=== PATIENT | male | born 1960 ===

== ENCOUNTER 2018-09-22 11:46 | Emergency (ER) | payer BC ==
[2018-09-22 11:58] VITALS: BP 138/80; PULSE 63
--- NOTE | 2018-09-22 12:03 | EDM.PDOC ---
ED HPI GENERAL MEDICAL PROBLEM - General Chief Complaint: General Stated Complaint: DIZZINESS, FEELS LIKE THROAT IS SWELLING Time Seen by Provider: 09/22/18 11:48 Source of Information: Reports: Patient History Limitations: Reports: No Limitations - History of Present Illness INITIAL COMMENTS - FREE TEXT/NARRATIVE: History of present illness: []Patient has had apparently one month of intermittent dizziness is described as spinning, associated with nausea. He also complains of swelling in his throat difficulty swallowing food. No chest pain, shortness of breath, vomiting , fevers, chills, headache, ringing in his ears, numbness or tingling, sore throat. He had a root canal one week ago and thought that would help his symptoms, however, it has not changed. He has been on antibiotics for the last week and is concerned because the side effects can cause throat swelling. Review of systems: As per history of present illness and below otherwise all systems reviewed and negative. Past medical history: As per history of present illness and as reviewed below otherwise noncontributory. Surgical history: As per history of present illness and as reviewed below otherwise noncontributory. Social history: No reported history of drug or alcohol abuse. Family history: As per history of present illness and as reviewed below otherwise noncontributory. Physical exam: General: Well developed, well nourished in NAD HEENT: Atraumatic, normocephalic, pupils reactive, negative for conjunctival pallor or scleral icterus, mucous membranes moist, throat clear, neck supple, nontender, no palpable neck masses or adenopathy, trachea midline. TMs clear, oropharynx without edema no stridor Lungs: Clear to auscultation, breath sounds equal bilaterally, chest nontender. No wheezing Heart: S1S2, regular, negative for clicks, rubs, or JVD. Abdomen: NABS, Soft, nondistended, nontender. Negative for masses or hepatosplenomegaly. Negative for costovertebral tenderness. Pelvis: Stable nontender. Genitourinary: Deferred. Rectal: Deferred. Extremities: Atraumatic, negative for cords or calf pain. Neurovascular unremarkable. Neuro: Awake, alert, oriented. Cranial nerves II through XII unremarkable. Cerebellum unremarkable. Motor and sensory unremarkable throughout. Exam nonfocal. Skin:warm and dry Diagnostics: Soft tissue neck CBC, chemistry-nl Therapeutics: Meclizine, Zofran ED Course: stable Impression: Benign positional vertigo Prescriptions: declined Plan: Take meclizine for dizziness as directed, appointment with Dr. Robbins tomorrow morning and return to ER if symptoms worsen or change Definitive disposition and diagnosis as appropriate pending reevaluation and review of above. Back Pain Score (Numeric/FACES): 4 - Related Data Allergies Allergy/AdvReac Type Severity Reaction Status Date / Time formoterol fumarate Allergy Blurred Verified 09/22/18 11:58 [From Dulera] Vision mometasone furoate Allergy Blurred Verified 09/22/18 11:58 [From Dulera] Vision Home Meds: Home Meds Albuterol Sulfate [Albuterol Sulfate HFA] 8.5 gm IH Q4H PRN 07/21/13 [History] Budesonide/Formoterol [Symbicort 160-4.5 MCG] 1 inhalation PO BID 07/21/13 [ History] Fluticasone Furoate [Veramyst] 1 spray GUSTAVO DAILY 07/21/13 [History] Past Medical History - Past Health History Medical/Surgical History: Denies Medical/Surgical History Respiratory History: Reports: Bronchitis, Recurrent Musculoskeletal History: Reports: Back Pain, Chronic - Past Surgical History HEENT Surgical History: Reports: Oral Surgery Social & Family History - Family History Family Medical History: Noncontributory - Tobacco Use Smoking Status *Q: Never Smoker Second Hand Smoke Exposure: No - Recreational Drug Use Recreational Drug Use: No ED ROS GENERAL - Review of Systems Review Of Systems: See Below ED EXAM, GENERAL - Physical Exam Exam: See Below (See history of present illness) Course - Vital Signs Last Recorded V/S: Last Vital Signs Temp 97.7 F 09/22/18 11:56 Pulse 63 09/22/18 11:56 Resp 18 09/22/18 11:56 BP 138/80 09/22/18 11:56 Pulse Ox 98 09/22/18 11:56 - Orders/Labs/Meds Labs: Laboratory Tests 09/22/18 09/22/18 Range/Units 12:44 12:44 WBC 7.74 (4.0-11.0) K/uL RBC 4.88 (4.50-5.90) M/uL Hgb 15.5 (13.0-17.0) g/dL Hct 45.9 (38.0-50.0) % MCV 94.1 (80.0-98.0) fL MCH 31.8 (27.0-32.0) pg MCHC 33.8 (31.0-37.0) g/dL RDW Std Deviation 44.2 (28.0-62.0) fl RDW Coeff of Raheem 13 (11.0-15.0) % Plt Count 231 (150-400) K/uL MPV 9.30 (7.40-12.00) fL Neut % (Auto) 57.9 (48.0-80.0) % Lymph % (Auto) 32.9 (16.0-40.0) % Greer % (Auto) 6.8 (0.0-15.0) % Eos % (Auto) 1.9 (0.0-7.0) % Baso % (Auto) 0.5 (0.0-1.5) % Neut # (Auto) 4.5 (1.4-5.7) K/uL Lymph # (Auto) 2.6 H (0.6-2.4) K/uL Greer # (Auto) 0.5 (0.0-0.8) K/uL Eos # (Auto) 0.2 (0.0-0.7) K/uL Baso # (Auto) 0.0 (0.0-0.1) K/uL Nucleated RBC % 0.0 /100WBC Nucleated RBCs # 0 K/uL Sodium 142 (136-148) mmol/L Potassium 4.1 (3.5-5.1) mmol/L Chloride 104 (98-107) mmol/L Carbon Dioxide 29.1 (21.0-32.0) mmol/L BUN 11 (7.0-18.0) mg/dL Creatinine 0.8 (0.8-1.3) mg/dL Est Cr Clr Drug Dosing 103.92 mL/min Estimated GFR (MDRD) > 60.0 ml/min Glucose 101 (74-106) mg/dL Calcium 9.5 (8.5-10.1) mg/dL Total Bilirubin 1.0 (0.2-1.0) mg/dL AST 34 (15-37) IU/L ALT 71 H (14-63) IU/L Alkaline Phosphatase 44 L (46-116) U/L Total Protein 8.0 (6.4-8.2) g/dL Albumin 4.5 (3.4-5.0) g/dL Globulin 3.5 (2.6-4.0) g/dL Albumin/Globulin Ratio 1.3 (0.9-1.6) Meds: Medications Discontinued Medications Generic Name Dose Route Start Last Admin Trade Name Freq PRN Reason Stop Dose Admin Meclizine HCl 25 mg 09/22/18 12:09/22/18 12:20 Antivert PO 09/22/18 12:09 25 mg ONETIME ONE Administration Ondansetron HCl 4 mg 09/22/18 12:09/22/18 12:20 Zofran Odt PO 09/22/18 12:09 4 mg ONETIME ONE Administration Departure - Departure Time of Disposition: 13:21 Disposition: Home, Self-Care 01 Condition: Good Clinical Impression: Benign positional vertigo Qualifiers: Laterality: unspecified laterality Qualified Code(s): H81.10 - Benign paroxysmal vertigo, unspecified ear - Discharge Information *PRESCRIPTION DRUG MONITORING PROGRAM REVIEWED*: No *COPY OF PRESCRIPTION DRUG MONITORING REPORT IN PATIENT CAROL: No Referrals: Pasquale Robbins MD [Primary Care Provider] - Forms: ED Department Discharge Additional Instructions: The following information is given to patients seen in the emergency department who are being discharged to home. This information is to outline your options for follow-up care. We provide all patients seen in our emergency department with a follow-up referral. The need for follow-up, as well as the timing and circumstances, are variable depending upon the specifics of your emergency department visit. If you don't have a primary care physician on staff, we will provide you with a referral. We always advise you to contact your personal physician following an emergency department visit to inform them of the circumstance of the visit and for follow-up with them and/or the need for any referrals to a consulting specialist. The emergency department will also refer you to a specialist when appropriate. This referral assures that you have the opportunity for follow-up care with a specialist. All of these measure are taken in an effort to provide you with optimal care, which includes your follow-up. Under all circumstances we always encourage you to contact your private physician who remains a resource for coordinating your care. When calling for follow-up care, please make the office aware that this follow-up is from your recent emergency room visit. If for any reason you are refused follow-up, please contact the [facility] Emergency Department at and asked to speak to the emergency department charge nurse. Take meclizine as directed, follow up with your primary care physician, return to ER if symptoms worsen or change. [facility] [address] [place] [id number]
[2018-09-22] MEDS ORDERED: Meclizine 25 MG Tab PO ONE (12:08)
[2018-09-22] MEDS ORDERED: Ondansetron 4 MG Tab.DIS PO ONE (12:08)
[2018-09-22 13:12] LABS: BLOOD UREA NITROGEN,BUN 11 mg/dL (7.0-18.0); CARBON DIOXIDE,CO2 29.1 mmol/L (21.0-32.0); CHLORIDE,CL 104 mmol/L (98-107); GLUCOSE RANDOM 101 mg/dL (74-106); POTASSIUM,K 4.1 mmol/L (3.5-5.1); SODIUM,NA 142 mmol/L (136-148)
--- NOTE | 2018-09-22 13:14 | CR ---
INDICATION: Throat swelling TECHNIQUE: AP and lateral soft tissue neck FINDINGS: The epiglottis and valleculae appear normal. The adenoid tissue and prevertebral soft tissues are of normal thickness. There is no evidence of gas or radiopaque foreign body within the soft tissues. The hyoid bone, cricoid, thyroid cartilages appear normal. IMPRESSION: Negative soft tissue neck. Dictated by Kurtis Powers MD @ Sep 22 2018 1:08PM Signed by Dr. Kurtis Powers @ Sep 22 2018 1:11PM
== END 2018-09-22 13:30 | disposition home or self-care (01) ==
LOC: MW.ED 11:46
DX: H81.10 Benign paroxysmal vertigo, unspecified ear (principal); Z88.8 Allergy status to other drugs, medicaments and biological substances
CPT/HCPCS: 36415; 70360; 80053; 85025; 99284; A9270; 99283

== ENCOUNTER 2019-03-01 06:38 | Day surgery (SDC) | payer BC ==
[~2019-03-01 06:38] MED LIST: Lactated Ringers 1,000 ML IV SCH; Sodium Chloride 0.9% 10 ML SDV IV PRN; Sodium Chloride 0.9% 10 ML Syringe FLUSH PRN; Sodium Chloride 0.9% 2.5 ML Syringe FLUSH PRN; ceFAZolin 2 GM in Premix Bag 1 BAG IV ONE
--- NOTE | 2019-03-01 07:18 | PCM.PREANE ---
Preanesthetic Assessment - Anesthesia/Transfusion/Family Hx Anesthesia History: Prior Anesthesia Without Reaction Other Type of Anesthesia Reaction Comment: Awoke during Thumb surgery Family History of Anesthesia Reaction: No Transfusion History: No Prior Transfusion(s) Intubation History: Unknown - Review of Systems General: No Symptoms Pulmonary: No Symptoms Cardiovascular: No Symptoms Gastrointestinal: No Symptoms Neurological: No Symptoms Other: Reports: None - Physical Assessment Height: 5 ft 10 in Weight: 81.647 kg ASA Class: 2 Mental Status: Alert & Oriented x3 Airway Class: Mallampati = 3 Dentition: Reports: Normal Dentition, Implants (x1 upper left (front)) Thyro-Mental Finger Breadths: 3 Mouth Opening Finger Breadths: 2 (very small mouth) ROM/Head Extension: Full Lungs: Clear to Auscultation, Normal Respiratory Effort Cardiovascular: Regular Rate, Regular Rhythm - Allergies Allergies/Adverse Reactions: Allergies Allergy/AdvReac Type Severity Reaction Status Date / Time formoterol fumarate Allergy Blurred Verified 02/25/19 09:28 [From Dulera] Vision mometasone furoate Allergy Blurred Verified 02/25/19 09:28 [From Dulera] Vision - Blood Blood Available: No - Anesthesia Plan Pre-Op Medication Ordered: None - Acknowledgements Anesthesia Type Planned: MAC Pt an Appropriate Candidate for the Planned Anesthesia: Yes Alternatives and Risks of Anesthesia Discussed w Pt/Guardian: Yes Pt/Guardian Understands and Agrees with Anesthesia Plan: Yes PreAnesthesia Questionnaire - Past Health History Medical/Surgical History: Denies Medical/Surgical History HEENT History: Reports: Allergic Rhinitis Respiratory History: Reports: Asthma (mild,moderate), Bronchitis, Recurrent Other Respiratory History: 'Asthmatic bronchitis", has not used a rescue inhaler for 8 years Gastrointestinal History: Reports: Colon Polyp, Diverticulosis Genitourinary History: Reports: Renal Calculus Other Genitourinary History: passed a kidney stone many years ago Musculoskeletal History: Reports: Back Pain, Chronic Dermatologic History: Reports: Other (See Below) Other Dermatologic History: multiple lipomas - Past Surgical History Head Surgeries/Procedures: Reports: None HEENT Surgical History: Reports: Oral Surgery Other HEENT Surgeries/Procedures: wisdom teeth removed, one dental implant GI Surgical History: Reports: Colonoscopy (5byears ago) Musculoskeletal Surgical History: Reports: ORIF Other Musculoskeletal Surgeries/Procedures:: ORIF right thumb- pins removed - SUBSTANCE USE Smoking Status *Q: Former Smoker Tobacco Use Within Last Twelve Months: No Recreational Drug Use History: No - HOME MEDS Home Medications: Home Meds Albuterol Sulfate [Albuterol Sulfate HFA] 8.5 gm IH Q4H PRN 07/21/13 [History] Budesonide/Formoterol [Symbicort 160-4.5 MCG] 1 inhalation PO BID 07/21/13 [ History] Fluticasone Furoate [Veramyst] 1 spray GUSTAVO DAILY 07/21/13 [History] - CURRENT (IN HOUSE) MEDS Current Meds: Current Medications Lactated Ringer's (Ringers, Lactated) 1,000 mls @ 125 mls/hr IV ASDIRECTED SALVADOR Sodium Chloride (Saline Flush) 10 ml FLUSH ASDIRECTED PRN PRN Reason: Keep Vein Open Sodium Chloride (Saline Flush) 2.5 ml FLUSH ASDIRECTED PRN PRN Reason: Keep Vein Open Sodium Chloride (Normal Saline) 10 ml IV ASDIRECTED PRN PRN Reason: IV Use Discontinued Medications Cefazolin Sodium/Dextrose 2 gm (/ Premix) 50 mls @ 100 mls/hr IV ONETIME ONE Stop: 02/28/19 13:49
[2019-03-01] MEDS ORDERED: Midazolam 1 MG/ML 2 ML SDV ONE (07:19)
[2019-03-01] MEDS ORDERED: fentaNYL 100 MCG/2 ML SDV ONE (07:19)
[2019-03-01] MEDS ORDERED: Propofol 200 MG/20 ML SDV ONE (07:19)
[2019-03-01] MEDS ORDERED: Octyl 2-Cyanoacrylate 1 Tube ONE (07:21)
[2019-03-01] MEDS ORDERED: Lidocaine 1% 20 ML MDV ONE (07:21)
[2019-03-01] MEDS ORDERED: Bupivacaine 0.5% 10 ML SDV ONE (07:21)
[2019-03-01] MEDS ORDERED: ePHEDrine 50 MG/ML SDV ONE (07:25)
[2019-03-01] MEDS ORDERED: Sodium Chloride 0.9% 20 ML ONE (07:25)
[2019-03-01] MEDS ORDERED: fentaNYL 100 MCG/2 ML SDV IVPUSH PRN (07:45)
[2019-03-01] MEDS ORDERED: Rocuronium 100 MG/10 ML Syringe ONE (09:28)
[2019-03-01] MEDS ORDERED: ceFAZolin/Dextrose,Iso-Osmotic 2 GM/50 ML Duplex Bag IV ONE (09:55)
--- NOTE | 2019-03-01 10:14 | PCM.POSTAN ---
POST ANESTHESIA ASSESSMENT - MENTAL STATUS Mental Status: Alert, Oriented - VITAL SIGNS Vital Signs: Last Vital Signs Temp 36.4 C 03/01/19 09:40 Pulse 77 03/01/19 10:00 Resp 13 03/01/19 10:00 BP 112/73 03/01/19 10:00 Pulse Ox 97 03/01/19 10:00 - RESPIRATORY Respiratory Status: Respiratory Rate WNL, Airway Patent, O2 Saturation Stable - CARDIOVASCULAR CV Status: Pulse Rate WNL, Blood Pressure Stable - GASTROINTESTINAL GI Status: No Symptoms - PAIN Pain Score: 0 - POST OP HYDRATION Hydration Status: Adequate & Stable - OBSERVATIONS Free Text/Narrative:: No anesthesia problems
--- NOTE | 2019-03-01 10:21 | PCM.OPNOTE ---
- General Post-Op/Procedure Note Date of Surgery/Procedure: 03/01/19 Operative Procedure(s): Excision right arm lipomas x 3, excision abdominal wall lipomas x 3 Findings: NO MARGINS ON ANY MASSES. abdominal wall mass 1: 4.5 x 3 x 1.2 cm abdominal wall mass 2: 2.5 x 1.8 x 1 cm abdominal wall mass 3: 2.5 x 2.5 x 0.5 cm right arm mass 1: 2.4 x 2 x 0.5 cm right arm mass 2A: 2.7 x 1.6 x 0.8 cm right arm mass 2B: 1.8 x 1.4 x 0.6 cm right arm mass 3: 1 x 1 x 1 cm Pre Op Diagnosis: Lipomas Post-Op Diagnosis: same Anesthesia Technique: General ET Tube Primary Surgeon: Taylor Fuller Fluid Replacement, Intraop: 1,400 EBL in mLs: 10 Condition: Good Free Text/Narrative:: Intake & Output 02/28/19 03/01/19 03/01/19 22:59 06:59 14:59 Intake Total 1150 Balance 1150
[2019-03-01] MEDS ORDERED: Acetaminophen/HYDROcodone 325-5 MG Tab PO ONE (10:30)
[2019-03-01] MEDS ORDERED: Acetaminophen/HYDROcodone 325-5 MG Tab ONE (10:39)
[2019-03-01 10:53] VITALS: BP 118/57; PULSE 64
--- NOTE | 2019-03-01 11:56 | PCM48HPAN ---
Post Anesthesia Note - EVALUATION WITHIN 48HRS OF ANESTHETIC Vital Signs in Normal Range: Yes Patient Participated in Evaluation: Yes Respiratory Function Stable: Yes Airway Patent: Yes Cardiovascular Function Stable: Yes Hydration Status Stable: Yes Pain Control Satisfactory: Yes Nausea and Vomiting Control Satisfactory: Yes Mental Status Recovered: Yes Vital Signs: Last Vital Signs Temp 36.4 C 03/01/19 10:05 Pulse 64 03/01/19 10:50 Resp 16 03/01/19 10:50 BP 118/57 L 03/01/19 10:50 Pulse Ox 98 03/01/19 10:50 - COMMENTS/OBSERVATIONS Free Text/Narrative:: NO anesthesia problems
--- NOTE | 2019-03-01 17:38 | OR ---
SURGEON: TAYLOR FULLER MD DATE OF PROCEDURE: 03/01/2019 PREOPERATIVE DIAGNOSIS: Multiple lipomas. POSTOPERATIVE DIAGNOSIS: Multiple lipomas. PROCEDURES PERFORMED: 1. Excision of abdominal wall lipoma x3. 2. Excision of right forearm lipoma x3. PRIMARY SURGEON: Taylor Fluler MD. ANESTHESIA: General endotracheal anesthesia. FLUIDS: 1400 mL of crystalloid. ESTIMATED BLOOD LOSS: 10 mL. COMPLICATIONS: None. FINDINGS: Abdominal wall lipoma #1: 4.5 x 3 x 1.2. Abdominal wall lipoma 2: 2.5 x 1.8 x 1 cm. Abdominal wall lipoma 3: 2.5 x 2.5 x 0.5 cm. Right arm lipoma #1: 2.4 x 2 x 0.5 cm. Right arm lipoma 2A: 2.7 x 1.6 x 0.8 cm. Right arm lipoma 2B: 1.8 x 1.4 x 0.6 cm. Right arm lipoma 3: 1 x 1 x 1 cm. INDICATIONS: The patient is a 59-year-old male who presents with multiple lipomas on his right forearm as well as abdominal wall. He has had multiple lipomas removed in the past. The patient and I discussed the procedure to excise these. I explained the expected perioperative course and the risks including bleeding, infection, or damage to surrounding structures. He verbalized understanding and wishes to proceed. PROCEDURE IN DETAIL: The patient was brought into the OR and placed on the OR table in supine position. A time-out was completed verifying the patient's name, age, date of , allergies, and procedure to be performed. General endotracheal anesthesia was induced. The abdominal wall was prepped and draped in usual standard fashion. There were 3 lipomas along the anterior abdominal wall. The patient and I had marked these in the preoperative area. I started with the most lateral lipoma, which was located on the right side. I anesthetized the area with a 1:1 mixture of 1% lidocaine plain and 0.5% Marcaine plain. I then anesthetized the other two lesions with the same mixture as well. A 15 blade was used to make an incision over the top of the lateral abdominal wall mass. Cautery was used to dissect down to the level of subcutaneous fat. I immediately encountered a fatty appearing mass consistent with a lipoma. Using a blunt dissection, I was able to free this easily from the surrounding subcutaneous fat. It was elevated and cautery was used to dissect it free from its surrounding attachments. It was then placed on the back table. It was labeled abdominal wall mass #1. It measured 4.5 x 3 x 1.2 cm in size. Hemostasis was achieved with electrocautery. I then turned my attention to abdominal wall lipoma #2. I used a 15 blade to make an incision over the top of this lesion and dissect to the subcutaneous fat using cautery. I immediately encountered the other lipoma. I dissected it free from the surrounding tissues using blunt dissection. It was placed on the back table. It was labeled as abdominal wall mass #2. It measured 2.5 x 1.8 x 1 cm in size. Hemostasis was achieved electrocautery. I turned my attention to abdominal wall lipoma #3. A 15 blade was used to make an incision over the top of this. Cautery was used to dissect down to level of subcutaneous fat. I immediately encountered a fatty appearing mass. This was consistent with a lipoma. It was bluntly dissected away from the surrounding normal tissue and placed on the back field. It was labeled abdominal wall mass #3. It measured 2.5 x 2.5 x 0.5 cm in size. Hemostasis was achieved with electrocautery. I then closed all three wounds in similar fashion using interrupted 3-0 Vicryl in the subcutaneous fat layer and closing the skin incision using a running 4-0 Monocryl stitch. Steri-Strips and sterile dressings were applied. The back table and cautery were kept sterile and all the dressings were taken down. We then prepped and draped the right extremity. In the preoperative area, I had marked the right forearm masses that the patient wanted removed. These were all anesthetized with the same 1:1 mixture of lidocaine and Marcaine. A 15 blade was used to make incisions over the top of each of these lesions. I started with my most distal mass. Electrocautery was carefully used to dissect out what appeared to be a lipoma. It was placed on the back table and labeled right arm mass #1. It measured 2.4 x 2 x 0.5 cm in size. Electrocautery was used to achieve hemostasis. I then turned my attention to the next lesion. It was dissected out in similar fashion. This lipoma was actually two lipomas located next to each other. The first one that was taken out measured 2.7 x 1.6 x 0.8 cm in size. The lipoma right next to it measured 1.8 x 1.4 x 0.6 cm in size. These were labeled as right arm mass 2A and 2B respectively. Hemostasis was achieved with electrocautery and great care was taken not to injure any structures around the area. The last skin lesion was dissected out in similar fashion. It measured 1 x 1 x 1 cm in size. It was labeled as right arm mass #3. All of the forearm skin lesions were closed with interrupted 3-0 Ethilon sutures. Sterile dressings and an Devin wrap were applied. The patient tolerated the procedure well. He was extubated and taken to PACU in stable condition. All counts were complete and correct at the end of the case. Given that these were lipomas, there were no margins associated with the lesions. RADHA CRAWFORD /[id number]
== END 2019-03-01 11:14 | disposition home or self-care (01) ==
LOC: MW.SDS 06:38
PROVIDERS: ATTEND Surgery
DX: D17.1 Benign lipomatous neoplasm of skin and subcutaneous tissue of trunk (principal); D17.21 Benign lipomatous neoplasm of skin and subcutaneous tissue of right arm; J45.909 Unspecified asthma, uncomplicated; Z87.891 Personal history of nicotine dependence; Z79.51 Long term (current) use of inhaled steroids; Z88.8 Allergy status to other drugs, medicaments and biological substances
CPT/HCPCS: 11401; 11402; 11403; 22902; 22903; A9270; J0330; J0690; J2001; J2250; J2704; J3010; J3490; J7120; 00400; 88304

== ENCOUNTER 2019-03-29 08:46 | Day surgery (SDC) | payer BC ==
[~2019-03-29 08:46] MED LIST changes: -ceFAZolin 2 GM in Premix Bag 1 BAG IV ONE
--- NOTE | 2019-03-29 10:33 | PCM.PREANE ---
Preanesthetic Assessment - Anesthesia/Transfusion/Family Hx Anesthesia History: Prior Anesthesia Without Reaction Other Type of Anesthesia Reaction Comment: daughter has problems with N&V post anesthesia Family History of Anesthesia Reaction: No Transfusion History: No Prior Transfusion(s) Intubation History: Unknown - Review of Systems General: No Symptoms Pulmonary: No Symptoms Cardiovascular: No Symptoms Gastrointestinal: No Symptoms, Other (h/o multiple colon polyps 5 years ago) Neurological: No Symptoms Other: Reports: None - Physical Assessment Vital Signs: Last Vital Signs Temp 36.9 C 03/29/19 10:01 Pulse 80 03/29/19 10:01 Resp 18 03/29/19 10:01 BP 142/80 H 03/29/19 10:01 Pulse Ox 97 03/29/19 10:01 Height: 5 ft 10 in Weight: 80.739 kg ASA Class: 2 Mental Status: Alert & Oriented x3 Airway Class: Mallampati = 2 Dentition: Reports: Normal Dentition, Goodenow(s) (x1 lower right), Implants (x1 upper left (side) ) Thyro-Mental Finger Breadths: 3 Mouth Opening Finger Breadths: 3 ROM/Head Extension: Full Lungs: Clear to Auscultation, Normal Respiratory Effort Cardiovascular: Regular Rate, Regular Rhythm - Allergies Allergies/Adverse Reactions: Allergies Allergy/AdvReac Type Severity Reaction Status Date / Time formoterol fumarate Allergy Blurred Verified 03/23/19 08:09 [From Dulera] Vision mometasone furoate Allergy Blurred Verified 03/23/19 08:09 [From Dulera] Vision - Blood Blood Available: No - Anesthesia Plan Pre-Op Medication Ordered: None - Acknowledgements Anesthesia Type Planned: MAC Pt an Appropriate Candidate for the Planned Anesthesia: Yes Alternatives and Risks of Anesthesia Discussed w Pt/Guardian: Yes Pt/Guardian Understands and Agrees with Anesthesia Plan: Yes PreAnesthesia Questionnaire - Past Health History Medical/Surgical History: Denies Medical/Surgical History HEENT History: Reports: Allergic Rhinitis Cardiovascular History: Reports: None Respiratory History: Reports: Bronchitis, Recurrent Other Respiratory History: 'Asthmatic bronchitis", has not used a rescue inhaler for 5 years, uses symbicort daily Gastrointestinal History: Reports: Colon Polyp (5 years ago), Diverticulosis Genitourinary History: Reports: Renal Calculus Other Genitourinary History: passed a kidney stone many years ago Musculoskeletal History: Reports: Back Pain, Chronic Neurological History: Reports: None Psychiatric History: Reports: None Endocrine/Metabolic History: Reports: None Hematologic History: Reports: None Immunologic History: Reports: None Oncologic (Cancer) History: Reports: None Dermatologic History: Reports: Other (See Below) Other Dermatologic History: excision of multiple lipomas 1 month ago - Past Surgical History Head Surgeries/Procedures: Reports: None HEENT Surgical History: Reports: Oral Surgery Other HEENT Surgeries/Procedures: wisdom teeth removed, one dental implant Cardiovascular Surgical History: Reports: None Respiratory Surgical History: Reports: None GI Surgical History: Reports: Colonoscopy (5 years ago) Endocrine Surgical History: Reports: None Neurological Surgical History: Reports: None Musculoskeletal Surgical History: Reports: ORIF Other Musculoskeletal Surgeries/Procedures:: ORIF right thumb- pins removed Oncologic Surgical History: Reports: None Dermatological Surgical History: Reports: Other (See Below) (exc. of multiple lipoma from abdominal wall and right arm angiolipoma 4 weeks ago) - SUBSTANCE USE Tobacco Use Within Last Twelve Months: Other (See Below) - HOME MEDS Home Medications: Home Meds Budesonide/Formoterol [Symbicort 160-4.5 MCG] 1 inhalation INH DAILY 07/21/13 [ History] Fluticasone Furoate [Veramyst] 1 spray GUSTAVO DAILY 07/21/13 [History] - CURRENT (IN HOUSE) MEDS Current Meds: Current Medications Lactated Ringer's (Ringers, Lactated) 1,000 mls @ 125 mls/hr IV ASDIRECTED SALVADOR Sodium Chloride (Saline Flush) 10 ml FLUSH ASDIRECTED PRN PRN Reason: Keep Vein Open Sodium Chloride (Saline Flush) 2.5 ml FLUSH ASDIRECTED PRN PRN Reason: Keep Vein Open Sodium Chloride (Saline Flush) 10 ml FLUSH ASDIRECTED PRN PRN Reason: Keep Vein Open Sodium Chloride (Saline Flush) 2.5 ml FLUSH ASDIRECTED PRN PRN Reason: Keep Vein Open Sodium Chloride (Normal Saline) 10 ml IV ASDIRECTED PRN PRN Reason: IV Use
[2019-03-29] MEDS ORDERED: Lidocaine 2% 5 ML SDV ONE (10:35)
[2019-03-29] MEDS ORDERED: Propofol 200 MG/20 ML SDV ONE (10:36)
[2019-03-29] MEDS ORDERED: fentaNYL 100 MCG/2 ML SDV ONE (10:36)
[2019-03-29] MEDS ORDERED: Glycopyrrolate 0.2 MG/ML SDV ONE (11:47)
--- NOTE | 2019-03-29 12:04 | PCM.OPNOTE ---
- General Post-Op/Procedure Note Date of Surgery/Procedure: 03/29/19 Operative Procedure(s): Screening colonoscopy Findings: diverticulosis Pre Op Diagnosis: screening colonoscopy Post-Op Diagnosis: diverticulosis Anesthesia Technique: MAC Primary Surgeon: Taylor Fuller Condition: Good
--- NOTE | 2019-03-29 12:25 | PCM.POSTAN ---
POST ANESTHESIA ASSESSMENT - MENTAL STATUS Mental Status: Alert, Oriented - VITAL SIGNS Vital Signs: Last Vital Signs Temp 36.9 C 03/29/19 10:01 Pulse 73 03/29/19 12:20 Resp 13 03/29/19 12:20 BP 107/71 03/29/19 12:20 Pulse Ox 95 03/29/19 12:20 - RESPIRATORY Respiratory Status: Respiratory Rate WNL, Airway Patent, O2 Saturation Stable - CARDIOVASCULAR CV Status: Pulse Rate WNL, Blood Pressure Stable - GASTROINTESTINAL GI Status: No Symptoms - PAIN Pain Score: 0 - POST OP HYDRATION Hydration Status: Adequate & Stable - OBSERVATIONS Free Text/Narrative:: No anesthesia problems
[2019-03-29 12:30] VITALS: BP 110/76; PULSE 71
--- NOTE | 2019-03-29 12:53 | PCM48HPAN ---
Post Anesthesia Note - EVALUATION WITHIN 48HRS OF ANESTHETIC Vital Signs in Normal Range: Yes Patient Participated in Evaluation: Yes Respiratory Function Stable: Yes Airway Patent: Yes Cardiovascular Function Stable: Yes Hydration Status Stable: Yes Pain Control Satisfactory: Yes Nausea and Vomiting Control Satisfactory: Yes Mental Status Recovered: Yes Vital Signs: Last Vital Signs Temp 36.4 C 03/29/19 12:24 Pulse 71 03/29/19 12:24 Resp 16 03/29/19 12:24 BP 110/76 03/29/19 12:24 Pulse Ox 97 03/29/19 12:24 - COMMENTS/OBSERVATIONS Free Text/Narrative:: No anesthesia problems
--- NOTE | 2019-03-29 12:54 | OR ---
SURGEON: TAYLOR FULLER MD DATE OF PROCEDURE: 03/29/2019 PREOPERATIVE DIAGNOSIS: Screening colonoscopy. POSTOPERATIVE DIAGNOSIS: Diverticulosis. PROCEDURE PERFORMED: Screening colonoscopy. PRIMARY SURGEON: Taylor Fuller MD. ANESTHESIA: MAC. INSTRUMENT USED: Olympus colonoscope. EXTENT OF EXAM: To the cecum. PREPARATION: Good. LIMITATIONS: None. INDICATIONS FOR EXAMINATION: The patient is a 59-year-old male who presents for screening colonoscopy. I explained the procedure; expected perioperative course; and risks including bleeding, infection, and damage to surrounding structures including perforation. The patient verbalized understanding and wishes to proceed. PROCEDURE IN DETAIL: The patient was brought into the endoscopy suite and placed in the left lateral decubitus position. A time-out was completed verifying the patient's name, age, date of , allergies, and procedure to be performed. Monitored anesthesia care was induced and continuous oxygen was provided via nasal cannula throughout the procedure. After adequate sedation was achieved, a digital rectal exam was performed. This exam was within normal limits. A well-lubricated colonoscope was inserted in the rectum and advanced under direct visualization to the level of the cecum. The cecum was identified by both visual and anatomic landmarks. A photograph was taken of the cecal cap; however, I was unable to retroflex the scope within the cecum due to looping of the scope more proximally. The scope was then fully withdrawn while examining the color, texture, anatomy, and integrity of the mucosa from the cecum to the anal canal. The patient was found to have diverticulosis throughout the sigmoid colon. The scope was then brought into the rectum and retroflexed to allow visualization of the anal canal opening. This appeared normal and a photograph was taken. The scope was then straightened out and fully withdrawn. The cecum to anus time was 6 minutes. The patient tolerated the procedure well and was transferred to the PACU in stable condition. ENDOSCOPIC DIAGNOSIS: Diverticulosis. RECOMMENDATIONS: Follow up in clinic in 2 weeks. RADHA CRAWFORD /[id number]
== END 2019-03-29 12:55 | disposition home or self-care (01) ==
LOC: MW.SDS 08:46
PROVIDERS: ATTEND Surgery
DX: Z12.11 Encounter for screening for malignant neoplasm of colon (principal); K57.30 Diverticulosis of large intestine without perforation or abscess without bleeding; Z88.8 Allergy status to other drugs, medicaments and biological substances; Z79.51 Long term (current) use of inhaled steroids
CPT/HCPCS: 45378; J2001; J2704; J3010; J3490; J7120

== ENCOUNTER 2021-03-10 15:38 | Emergency (ER) | payer BC ==
[2021-03-10] MEDS ORDERED: Pantoprazole 40 MG Tab.CR PO STA (16:16)
[2021-03-10 18:11] VITALS: BP 122/77; PULSE 60
== END 2021-03-10 18:00 | disposition home or self-care (01) ==
LOC: MW.ED 15:38
DX: K29.70 Gastritis, unspecified, without bleeding (principal); T38.0X5A Adverse effect of glucocorticoids and synthetic analogues, initial encounter; R06.6 Hiccough; J45.909 Unspecified asthma, uncomplicated; Z88.8 Allergy status to other drugs, medicaments and biological substances; Z79.899 Other long term (current) drug therapy
CPT/HCPCS: 36415; 71045; 85025; 99283; A9270

== ENCOUNTER 2022-01-20 14:45 | Emergency (ER) | payer BC ==
[2022-01-20] MEDS ORDERED: Lidocaine/Epineph/Tetracaine 3 ML Syringe TOP ONE (18:18)
[2022-01-20 19:46] VITALS: BP 143/89; PULSE 68
== END 2022-01-20 19:44 | disposition home or self-care (01) ==
LOC: MW.ED 14:45
DX: S01.01XA Laceration without foreign body of scalp, initial encounter (principal); J45.909 Unspecified asthma, uncomplicated; Z88.8 Allergy status to other drugs, medicaments and biological substances; Z79.899 Other long term (current) drug therapy; W11.XXXA Fall on and from ladder, initial encounter
CPT/HCPCS: 12002; 70450; 99283; A9270

== ENCOUNTER 2023-05-17 20:41 | Emergency (ER) | payer BC ==
[2023-05-17] MEDS: Morphine 4 MG/ML Syringe IVPUSH ONE ×2 (21:19→22:55)
[2023-05-17] MEDS: Sodium Chloride 0.9% 10 ML Syringe FLUSH PRN (21:19)
[2023-05-17] MEDS: Sodium Chloride 0.9% 2.5 ML Syringe FLUSH PRN (21:19)
[2023-05-17] MEDS: Ondansetron 4 MG/2 ML SDV IVPUSH ONE (21:19)
[2023-05-17] MEDS: Famotidine 20 MG/2 ML SDV IVPUSH ONE (21:19)
[2023-05-17] MEDS: Sodium Chloride 0.9% 1,000 ML IV ONE (21:19)
[2023-05-17 21:24] LABS: BASOPHILS ABSOLUTE AUTO 0.04 K/uL (0.00-0.20); BASOPHILS PERCENT AUTO 0.3 % (0.0-1.0); EOSINOPHILS ABSOLUTE AUTO 0.11 K/uL (0.00-0.45); EOSINOPHILS PERCENT AUTO 0.9 % (0.0-6.0); HEMATOCRIT 44.8 % (42.0-52.0); HEMOGLOBIN 15.9 g/dL (14.0-18.0); IMMATURE GRAN ABSOLUTE AUTO 0.05 K/uL (0.00-0.05); IMMATURE GRAN PERCENT AUTO 0.4 % (0.0-0.4); LYMPHOCYTES ABSOLUTE AUTO 2.19 K/uL (1.00-4.80); LYMPHOCYTES PERCENT AUTO 17.4 % (24.0-44.0); MEAN CORPUSCULAR HEMOGLOBIN 31.6 pg (28.0-32.0); MEAN CORPUSCULAR HGB CONC 35.5 g/dL (32.0-36.0); MEAN CORPUSCULAR VOLUME 89.1 fL (83.0-99.0); MEAN PLATELET VOLUME 8.9 fL (9.4-12.4); MONOCYTES ABSOLUTE AUTO 0.66 K/uL (0.00-0.80); MONOCYTES PERCENT AUTO 5.2 % (0.0-8.0); NEUTROPHILS ABSOLUTE AUTO 9.56 K/uL (1.80-7.70); NEUTROPHILS PERCENT AUTO 75.8 % (41.0-71.0); PLATELET COUNT,PLT 287 K/uL (150-400); RED BLOOD CELL COUNT 5.03 M/uL (4.52-5.90); WHITE BLOOD CELL COUNT,WBC 12.61 K/uL (3.9-11.3)
[2023-05-17 21:54] LABS: ALBUMIN 3.9 g/dL (3.4-5.0); BILIRUBIN TOTAL 1.2 mg/dL (0.2-1.0); CALCIUM 9.8 mg/dL (8.5-10.1); CARBON DIOXIDE,CO2 25.9 mmol/L (21.0-32.0); EST CRCL DRUG DOSING (CG) 78.07 mL/min; POTASSIUM,K 3.9 mmol/L (3.5-5.1); PROTEIN TOTAL,TP 7.7 g/dL (6.4-8.2)
[2023-05-17] MEDS: Iopamidol 755 MG/ML 500 ML Multipack Bottle IVPUSH ONE (22:09)
[2023-05-17 22:34] LABS: APPEARANCE,URINE CLEAR; BILIRUBIN,URINE NEGATIVE (NEGATIVE); COLOR,URINE YELLOW; GLUCOSE,URINE NEGATIVE (NEGATIVE); KETONES,URINE NEGATIVE (NEGATIVE); LEUKOCYTE ESTERASE,URINE NEGATIVE (NEGATIVE); NITRITE,URINE NEGATIVE (NEGATIVE); OCCULT BLOOD,URINE NEGATIVE (NEGATIVE); PH,URINE 6.5 (5.0-8.0); PROTEIN,URINE NEGATIVE (NEGATIVE); UROBILINOGEN,URINE 0.2 EU/dL (<2.0)
[2023-05-17 23:09] VITALS: BP 123/100
[2023-05-18 00:12] VITALS: PULSE 78
== END 2023-05-18 00:11 | disposition home or self-care (01) ==
LOC: MW.ED 20:41
DX: K52.9 Noninfective gastroenteritis and colitis, unspecified (principal); N43.3 Hydrocele, unspecified; D72.829 Elevated white blood cell count, unspecified; K57.90 Diverticulosis of intestine, part unspecified, without perforation or abscess without bleeding; Z79.899 Other long term (current) drug therapy; Z88.8 Allergy status to other drugs, medicaments and biological substances; Z75.8 Other problems related to medical facilities and other health care
CPT/HCPCS: 36415; 74177; 76870; 80053; 81003; 83690; 85025; 93976; 96361; 96374; 96375; 96376; 99284; J2270; J2405; J3490; J7030; Q9967